=== PATIENT | female | born 1965 | race African-American/Black ===

== ENCOUNTER → 2017-08-05 | Outpatient (CLI) | payer BC, OTHER ==
[~2017-08-05] VITALS: Ht 156.2 cm; Wt 65.8 kg
== END | disposition home or self-care (01) ==
LOC: Rad HDHVI 08:06
PROVIDERS: ATTEND Internal Medicine Cardiovascular Disease
DX: I10 Essential (primary) hypertension (principal); E11.9 Type 2 diabetes mellitus without complications; F17.210 Nicotine dependence, cigarettes, uncomplicated; E78.00 Pure hypercholesterolemia, unspecified; R07.89 Other chest pain
CPT/HCPCS: 78452; 93017; 96374; A9500

== ENCOUNTER → 2017-08-08 | Outpatient (CLI) | payer BC | END | disposition home or self-care (01) | LOC: Rad HDHVI 08:48 | PROVIDERS: ATTEND Internal Medicine Cardiovascular Disease | DX: I20.9 Angina pectoris, unspecified (principal) | CPT/HCPCS: 93306 ==